=== PATIENT | male | born 1950 | race Caucasian/White ===

== ENCOUNTER 2018-05-04 16:53 | Emergency (ER) | payer OTHER, MEDICAID ==
[~2018-05-04] VITALS: Ht 175.3 cm; Wt 93.0 kg
[2018-05-04 17:11] VITALS: Ht 175.3 cm; Wt 93.0 kg
[2018-05-04 18:20] VITALS: BP 171/102
== END 2018-05-04 18:20 | disposition home or self-care (01) ==
LOC: ED 16:53
DX: L03.116 Cellulitis of left lower limb (principal); G89.29 Other chronic pain